=== PATIENT | female | born 1965 | race Hispanic/Latino ===

== ENCOUNTER 2019-08-02 13:43 | Emergency (ER) | payer OTHER ==
[~2019-08-02] VITALS: Ht 160 cm; Wt 63.0 kg
[~2019-08-02 13:43] MED LIST: GABAPENTIN600 MG PO; IMITREX25 MG PO; K-PHOS NEUTRAL250 MG PO; LIPITOR20 MG PO; METFORMIN HCL500 MG PO; NEURONTIN; REGLAN10 MG PO; TOPAMAX25 MG PO; VASOTEC10 MG PO; Z.0.ENALAPRIL MALEA2 PO; Z.1.METFORMIN HCL100 PO
--- OUTSIDE RECORDS SUMMARY | 2019-08-02 13:46 | XMS REPORT ---
Author [facility] Address Unknown Phone Unavailable Care Team Providers Care Time Broker Name Role Phone HARRIS BARRON Unavailable Unavailable Problems This patient has no known problems. Allergies, Adverse Reactions, Alerts This patient has no known allergies or adverse reactions. Medications This patient has no known medications. Results Test Description Test Time Test Comments Text Results Atomic Results Result Comments CT, BRAIN, WITHOUT CONTRAST 2017-12-18 17:27:00 Reason for exam:->headacheIs the patient ?->NoWhat is the patient's sedation requirement?->No Sedation FINAL REPORT CT head without contrast 12/18/2017 5:26 PM CLINICAL HISTORY: headachedizziness TECHNIQUE: Axial noncontrast CT images through the head were obtained. This examination was performed according to our departmental dose optimization program, which includes automated exposure control, adjustment of the mA and/or kV according to patient size, and/or use of iterated reconstruction technique. COMPARISON: None available FINDINGS: There is no hemorrhage, extra-axial collection, mass, hydrocephalus, or midline shift. There is no CT evidence for cerebral infarction. There is generalized parenchymal volume loss. The visualized paranasal sinuses and mastoid air cells are well aerated. The skull is intact. IMPRESSION: No intracranial hemorrhage or mass effect. If concern for acute pathology persists, further evaluation with MRI is recommended. Signed: Ricci Shay Verified Date/Time: 12/18/2017 17:27:09 Reading Location: [facility] Radiology Reading Room ONIN I 2017-12-18 14:41:00 TROPONIN I (BEAKER) (test ttog=748) < ng/mL 0.00-0.03 Troponin I (TnI) levels must be interpreted in the context of the presenting sym ptoms and the clinical findings. Elevated TnI levels indicate myocardial damage, but are not specific for ischemic heart disease. Elevated TnI levels are seen in patients with other cardiac conditions (including myocarditis and congestive h eart failure), and slight TnI elevations occur in patients with other conditions , including sepsis, renal failure, acidosis, acute neurological disease, and per sistent tachyarrhythmia.RAD, CHEST, 1 VIEW, NON [id number] 14:02:00Reason for exam:->CHEST PAINIs the patient ?->UnknownShould this be performed at the bedside?->YesFINAL REPORT TECHNIQUE: Frontal chest radiograph dated 12/18/2017. CLINICAL HISTORY: Chest pain COMPARISON STUDY: Chest radiograph dated 05/09/2016 IMPRESSION:Lungs are clear. No pleural effusion or pneumothorax. Cardiomediastinal silhouette is normal in size. No pulmonary edema. Degenerative changes are seen in the spine. Bones are osteopenic. No fracture. Signed: Cora Kimeport Verified Date/Time: 12/18/2017 14:02:47 Reading Location: [facility] Radiology Reading Room TINE KINASE (CK), TOTAL AND [id number] 13:25:00* Test Item Value Reference Range Comments CREATINE KINASE TOTAL (BEAKER) (test cwid=994) 35 U/L 29-200 CREATINE KINASE-MB (BEAKER) (test aqqm=662) 0.7 ng/mL 0.0-6.6 CREATINE KINASE-MB INDEX (BEAKER) (test fxfc=312) 2.0 % CK-MB Reference Range:<6.7 Normal6.7-10.0 Borderline>10.0 AbnormalB- TYPE NATRIURETIC FACTOR (BNP)2017-12-18 13:24:00* Test Item Value Reference Range Comments B-TYPE NATRIURETIC PEPTIDE (BEAKER) (test vbgs=979) 73 pg/mL 0-100 BASIC METABOLIC [id number] 13:16:00* Test Item Value Reference Range Comments SODIUM (BEAKER) (test bqiw=151) 142 meq/L 136-145 POTASSIUM (BEAKER) (test trbw=879) 4.4 meq/L 3.5-5.1 Specimen slightly hemolyzed CHLORIDE (BEAKER) (test hppb=833) 105 meq/L 98-107 CO2 (BEAKER) (test miqf=018) 25 meq/L 22-29 BLOOD UREA NITROGEN (BEAKER) (test zajx=900) 11 mg/dL 7-21 CREATININE (BEAKER) (test hleo=975) 0.66 mg/dL 0.57-1.25 Specimen slightly hemolyzed GLUCOSE RANDOM (BEAKER) (test khbh=208) 161 mg/dL 70-105 CALCIUM (BEAKER) (test ceft=971) 10.3 mg/dL 8.4-10.2 EGFR (BEAKER) (test hpob=7460) 94 mL/min/1.73 sq m ESTIMATED GFR IS NOT ACCURATE CREATININE CLEARANCE IN PREDICTING GLOMERULAR FILTRATION RATE. ESTIMATED GFR IS NOT APPLICABLE FOR DIALYSIS PATIENTS. CBC W/PLT COUNT & AUTO [id number] 12:59:00* Test Item Value Reference Range Comments WHITE BLOOD CELL COUNT (BEAKER) (test jfey=262) 7.1 K/ L 3.5-10.5 RED BLOOD CELL COUNT (BEAKER) (test yrlu=647) 5.05 M/ L 3.93-5.22 HEMOGLOBIN (BEAKER) (test dwiw=346) 13.8 GM/DL 11.2-15.7 HEMATOCRIT (BEAKER) (test icre=867) 41.8 % 34.1-44.9 MEAN CORPUSCULAR VOLUME (BEAKER) (test flmb=329) 82.8 fL 79.4-94.8 MEAN CORPUSCULAR HEMOGLOBIN (BEAKER) (test dpar=554) 27.3 pg 25.6-32.2 MEAN CORPUSCULAR HEMOGLOBIN CONC (BEAKER) (test qvff=538) 33.0 GM/DL 32.2-35.5 RED CELL DISTRIBUTION WIDTH (BEAKER) (test oded=059) 13.3 % 11.7-14.4 PLATELET COUNT (BEAKER) (test qifl=132) 205 K/CU MM 150-450 MEAN PLATELET VOLUME (BEAKER) (test ggou=455) 10.0 fL 9.4-12.3 NUCLEATED RED BLOOD CELLS (BEAKER) (test kcuj=039) 0 /100 WBC 0-0 NEUTROPHILS RELATIVE PERCENT (BEAKER) (test ukln=886) 45 % LYMPHOCYTES RELATIVE PERCENT (BEAKER) (test jgox=763) 40 % MONOCYTES RELATIVE PERCENT (BEAKER) (test edyg=235) 8 % EOSINOPHILS RELATIVE PERCENT (BEAKER) (test hvji=369) 7 % BASOPHILS RELATIVE PERCENT (BEAKER) (test klek=560) 1 % NEUTROPHILS ABSOLUTE COUNT (BEAKER) (test mzaa=065) 3.17 K/ L 1.56-6.13 LYMPHOCYTES ABSOLUTE COUNT (BEAKER) (test xwwn=097) 2.83 K/ L 1.18-3.74 MONOCYTES ABSOLUTE COUNT (BEAKER) (test oreh=188) 0.56 K/ L 0.24-0.36 EOSINOPHILS ABSOLUTE COUNT (BEAKER) (test pfsa=281) 0.47 K/ L 0.04-0.36 BASOPHILS ABSOLUTE COUNT (BEAKER) (test hgxa=410) 0.06 K/ L 0.01-0.08 IMMATURE GRANULOCYTES-RELATIVE PERCENT (BEAKER) (test wlft=1177) 0 % 0-1 POCT-GLUCOSE [id number] 12:58:00* Test Item Value Reference Range Comments POC-GLUCOSE METER (BEAKER) (test jtoc=8543) 163 mg/dL 70-110 TESTED AT [place] [id number] POCT-GLUCOSE [id number] 12:44:00* Test Item Value Reference Range Comments POC-GLUCOSE METER (BEAKER) (test vumj=9969) 166 mg/dL 70-110 TESTED AT [place] [id number]
--- NOTE | 2019-08-02 14:44 | Diagnostic Imaging Report ---
EXAMINATION: PA and lateral views of the chest. COMPARISON: None CLINICAL HISTORY: cough, asthma DISCUSSION: Lines/tubes: None. Lungs: The lungs are well inflated and clear. No pneumonia or pulmonary edema. Pleura: No pleural effusion or pneumothorax. Heart and mediastinum: The cardiomediastinal silhouette is normal. Bones and soft tissues: No acute bony abnormalities. IMPRESSION: No acute cardiopulmonary abnormalities. Signed by: Dr. Rajiv Prabhakar M.D. on 08/02/2019 2:42 PM
[2019-08-02] MEDS: ALBUTEROL/IPRATROPIUM 3 ML NEB NEB ONE ×2 (14:45→15:15)
[2019-08-02] MEDS: PREDNISONE 20 MG TAB PO ONE (14:52)
[2019-08-02] MEDS ORDERED: ALBUTEROL/IPRATROPIUM 3 ML NEB ONE (15:27)
[2019-08-02] MEDS ORDERED: TESSALON PERLE100 MG PO (15:37)
== END 2019-08-02 16:07 | disposition home or self-care (01) ==
LOC: ER 13:43
DX: R50.9 Fever, unspecified (principal); R05 Cough; R06.2 Wheezing; J20.9 Acute bronchitis, unspecified; I10 Essential (primary) hypertension; E11.9 Type 2 diabetes mellitus without complications; Z86.73 Personal history of transient ischemic attack (TIA), and cerebral infarction without residual deficits
CPT/HCPCS: 71046; 87400; 99284; J7512